=== PATIENT | male | born 1980 | race Caucasian/White ===

== ENCOUNTER 2021-12-31 01:11 | Inpatient (IN) | payer BC ==
[2021-12-31] MEDS ORDERED: cefOXitin 2 GM Vial ONE (06:35)
[2021-12-31] MEDS ORDERED: Propofol 200 MG/20 ML SDV ONE (07:39)
[2021-12-31] MEDS ORDERED: Ondansetron 4 MG/2 ML SDV ONE (07:39)
[2021-12-31] MEDS ORDERED: Succinylcholine 200 MG/10 ML MDV ONE (07:39)
[2021-12-31] MEDS ORDERED: Dexamethasone 4 MG/ML SDV ONE (07:39)
[2021-12-31] MEDS ORDERED: Rocuronium 50 MG/5 ML Vial ONE ×2 (07:39→11:35)
[2021-12-31] MEDS ORDERED: Glycopyrrolate 0.2 MG/ML 5 ML MDV ONE (07:39)
[2021-12-31] MEDS ORDERED: Neostigmine Methylsulfate 1 MG/ML 5 ML Syringe ONE (07:39)
[2021-12-31] MEDS ORDERED: fentaNYL 250 MCG/5 ML SDV ONE ×2 (07:41→11:24)
[2021-12-31] MEDS ORDERED: Ketorolac 30 MG/ML SDV ONE (08:18)
[2021-12-31] MEDS ORDERED: Lactated Ringers 1,000 ML ONE (08:37)
[2021-12-31] MEDS ORDERED: Dextrose 5%-Lactated Ringers 1,000 ML IV SCH (08:45)
[2021-12-31] MEDS ORDERED: Acetaminophen 500 MG Tab PO ONE (09:00)
[2021-12-31] MEDS ORDERED: Scopolamine 1.5 MG Transdermal Patch TOP SCH (09:00)
[2021-12-31] MEDS ORDERED: Celecoxib 200 MG Cap PO ONE (09:00)
[2021-12-31] MEDS ORDERED: Albuterol/Ipratropium 3.0-0.5 MG/3 ML Neb Soln NEB ONE (09:30)
[2021-12-31] MEDS ORDERED: cefOXitin 2 GM in Sodium Chloride 0.9% 50 ML IV ONE (09:45)
[2021-12-31] MEDS ORDERED: Ketamine 500 MG/5 ML MDV IV SCH (10:00)
[2021-12-31] MEDS ORDERED: KETAMINE IV SCH (10:00)
[2021-12-31] MEDS ORDERED: SODIUM CHLORIDE 0.9% IV SCH (10:00)
[2021-12-31] MEDS ORDERED: Sugammadex Sodium 200 MG/2 ML VIAL ONE (13:46)
[2021-12-31] MEDS ORDERED: hydrOXYzine HCL 100 MG/2 ML SDV IM ONE (14:01)
[2021-12-31] MEDS ORDERED: fentaNYL 100 MCG/2 ML SDV IVPUSH ONE (14:15)
[2021-12-31] MEDS ORDERED: hydrOXYzine HCL 100 MG/2 ML SDV IM PRN (16:00)
[2021-12-31] MEDS ORDERED: Pantoprazole 40 MG Vial IVPUSH SCH (16:00)
[2021-12-31] MEDS ORDERED: diphenhydrAMINE 50 MG/ML SDV IVPUSH PRN (16:00)
[2021-12-31] MEDS ORDERED: HYDROmorphone 0.5 MG/0.5 ML Syringe IVPUSH PRN (16:00)
[2021-12-31] MEDS ORDERED: HYDROmorphone 1 MG/ML Syringe IV PRN (16:00)
[2021-12-31] MEDS ORDERED: Acetaminophen 500 MG Tab PO PRN (16:00)
[2021-12-31] MEDS ORDERED: Ondansetron 4 MG/2 ML SDV IVPUSH PRN (16:00)
[2021-12-31] MEDS ORDERED: oxyCODONE 5 MG Tab PO PRN (16:00)
[2021-12-31] MEDS ORDERED: Labetalol 20 MG/4 ML Syringe IVPUSH PRN (16:00)
[2021-12-31] MEDS ORDERED: Metoclopramide 10 MG/2 ML SDV IVPUSH PRN (16:00)
[2021-12-31] MEDS ORDERED: Albuterol/Ipratropium 3.0-0.5 MG/3 ML Neb Soln INH PRN (16:00)
[2021-12-31] MEDS: Albuterol/Ipratropium 3.0-0.5 MG/3 ML Neb Soln INH SCH ×2 (16:18→21:41)
[2021-12-31] MEDS: cefOXitin 2 GM in Sodium Chloride 0.9% 50 ML IV SCH ×2 (16:46→21:43)
[2021-12-31] MEDS: Acetaminophen 500 MG Tab PO SCH (16:46)
[2021-12-31] MEDS: Heparin Sodium 5,000 Units/ML Vial SUBCUT SCH (16:46)
[2021-12-31] MEDS: SCOPOLAMINE PATCH CHECK TOP SCH (16:48)
[2021-12-31] MEDS ORDERED: MVI, Adult with Vitamin K 10 ML, Thiamine 200 MG, Zinc/Copper/Manganese/Selenium 1 ML i... IV SCH ×4 (17:00)
[2021-12-31] MEDS: traMADol 50 MG Tab PO PRN (18:35)
[2021-12-31] MEDS: Cyclobenzaprine 10 MG Tab PO PRN (21:56)
[2021-12-31] MEDS: Dextrose 5%-Lactated Ringers 1,000 ML IV SCH (22:50)
[2022-01-01] MEDS: traMADol 50 MG Tab PO PRN ×2 (00:45→14:27)
[2022-01-01] MEDS: Acetaminophen 500 MG Tab PO SCH ×4 (00:46→23:57)
[2022-01-01] MEDS: Heparin Sodium 5,000 Units/ML Vial SUBCUT SCH ×4 (00:46→23:57)
[2022-01-01] MEDS: cefOXitin 2 GM in Sodium Chloride 0.9% 50 ML IV SCH ×4 (04:00→23:08)
[2022-01-01] MEDS: Dextrose 5%-Lactated Ringers 1,000 ML IV SCH ×2 (04:04→11:29)
[2022-01-01] MEDS ORDERED: Iopamidol 612 MG/ML 50 ML SDV PO ONE (06:58)
[2022-01-01] MEDS: Albuterol/Ipratropium 3.0-0.5 MG/3 ML Neb Soln INH SCH ×4 (07:21→22:12)
[2022-01-01] MEDS: Cyclobenzaprine 10 MG Tab PO PRN ×2 (08:18→22:11)
[2022-01-01] MEDS ORDERED: Metoprolol Succinate 25 MG Tab.ER PO SCH ×2 (09:00→15:30)
[2022-01-01] MEDS ORDERED: amLODIPine 5 MG Tab PO SCH ×2 (09:00→15:30)
[2022-01-01] MEDS: Celecoxib 200 MG Cap PO SCH ×2 (09:21→22:08)
[2022-01-01] MEDS: SCOPOLAMINE PATCH CHECK TOP SCH (09:21)
[2022-01-01] MEDS: Losartan 50 MG Tab PO SCH (09:23)
[2022-01-01] MEDS ORDERED: hydrOXYzine HCl 25 MG Tab PO PRN (11:02)
[2022-01-01] MEDS ORDERED: Ondansetron 4 MG Tab.DIS PO PRN (11:02)
[2022-01-01] MEDS ORDERED: MVI, Adult with Vitamin K 10 ML, Thiamine 200 MG, Zinc/Copper/Manganese/Selenium 1 ML i... IV SCH ×4 (16:00)
[2022-01-01] MEDS ORDERED: Pantoprazole 40 MG Delayed-Release Granules 1 Packet PO SCH (16:30)
[2022-01-02] MEDS: Dextrose 5%-Lactated Ringers 1,000 ML IV SCH (02:12)
[2022-01-02 02:52] VITALS: PULSE 55
[2022-01-02] MEDS: cefOXitin 2 GM in Sodium Chloride 0.9% 50 ML IV SCH ×2 (04:41→10:16)
[2022-01-02] MEDS: Albuterol/Ipratropium 3.0-0.5 MG/3 ML Neb Soln INH SCH ×2 (06:58→10:41)
[2022-01-02 08:12] VITALS: BP 132/68
[2022-01-02] MEDS: Celecoxib 200 MG Cap PO SCH (08:42)
[2022-01-02] MEDS: Acetaminophen 500 MG Tab PO SCH (08:42)
[2022-01-02] MEDS: Losartan 50 MG Tab PO SCH (08:43)
[2022-01-02] MEDS: SCOPOLAMINE PATCH CHECK TOP SCH (08:53)
[2022-01-02] MEDS ORDERED: Cyanocobalamin (Vitamin B12) 1,000 MCG/ML SDV IM ONE (09:00)
[2022-01-02] MEDS ORDERED: Enoxaparin 100 MG/1 ML Syringe SUBCUT SCH (09:00)
== END 2022-01-02 12:45 | disposition home or self-care (01) | DRG 403 ==
LOC: EDSTATUS 07:15 → JP.MS 08:18 → JP.SDS 08:18 → JP.MS 15:10 → UNDOADMIN 15:10
PROVIDERS: ADMIT Surgery; ATTEND Surgery
PROC: 0D164ZA Bypass Stomach to Jejunum, Percutaneous Endoscopic Approach (ICD-10-PCS; principal; 2021-12-31)
PROC: 0FB24ZX Excision of Left Lobe Liver, Percutaneous Endoscopic Approach, Diagnostic (ICD-10-PCS; 2021-12-31)
PROC: 0BQT4ZZ Repair Diaphragm, Percutaneous Endoscopic Approach (ICD-10-PCS; 2021-12-31)
PROC: 0JB63ZZ Excision of Chest Subcutaneous Tissue and Fascia, Percutaneous Approach (ICD-10-PCS; 2021-12-31)
PROC: 0DB84ZZ Excision of Small Intestine, Percutaneous Endoscopic Approach (ICD-10-PCS; 2021-12-31)
DX: E66.01 Morbid (severe) obesity due to excess calories (principal); Z68.44 Body mass index [BMI] 60.0-69.9, adult; I10 Essential (primary) hypertension; K21.9 Gastro-esophageal reflux disease without esophagitis; D64.9 Anemia, unspecified; G47.30 Sleep apnea, unspecified; I48.91 Unspecified atrial fibrillation; R16.0 Hepatomegaly, not elsewhere classified; K44.9 Diaphragmatic hernia without obstruction or gangrene; D17.4 Benign lipomatous neoplasm of intrathoracic organs; R35.0 Frequency of micturition; Z86.711 Personal history of pulmonary embolism; Z79.01 Long term (current) use of anticoagulants
CPT/HCPCS: 36415; 74240; 74240-26; 82947; 83735; 84100; 86850; 86900; 86901; 88304; 88307; 88313; 93005; 94640; A9270-GY; C9113; J0171; J0330; J0694; J1100; J1170; J1644; J1650; J1885; J2405; J2704; J2710; J2795; J3010; J3410; J3411; J3420; J3490; J7030; J7120; J7121; J7620; Q9967